=== PATIENT | male | born 1995 | race Caucasian/White ===

== ENCOUNTER 2019-10-27 21:09 | Emergency (ER) | payer SELFPAY ==
[2019-10-27 21:10] VITALS: BP 164/100; PULSE 104; RESP 16; TEMP 36.6; O2SAT 99; BMI 30.1
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
--- NOTE | 2019-10-27 21:27 | RAD_ITS ---
STUDY: X-RAY - LEFT KNEE REASON FOR EXAM: Male, 24 years old. COMPLAINS OF LEFT KNEE CRAMPING, CALF PAIN. KNEE REPLACEMENT 5 YRS AGO TECHNIQUE: 4 view(s) of the knee. COMPARISON: None. FINDINGS: Prosthesis is present in anatomic alignment and position. No evidence for acute fracture or dislocation. No radiographic evidence for loosening or infection of the prosthesis.. RAD/Knee 4 or More Views IMPRESSION: Stable appearance to left knee prosthesis. No acute abnormality Electronically Signed: Julio Tian MD at 21:42 EDT , Service support ,
--- NOTE | 2019-10-27 21:28 | US_ITS ---
STUDY: VENOUS DOPPLER ULTRASOUND - LEFT LOWER EXTREMITY REASON FOR EXAM: Male, 24 years old. LT KNEE CRAMPING AND CALF PAIN TECHNIQUE: Ultrasound evaluation of the deep vein system to include nolan-scale imaging and compression was performed. Nolan-scale imaging and Doppler sonographic evaluation, including duplex spectral analysis and qualitative color flow sonography, was performed. COMPARISON: None. FINDINGS: Common Femoral Vein: Normal compression, spontaneity and augmentation. Normal color Doppler. Common Femoral Vein/Greater Saphenous Junction: Normal compression, spontaneity and augmentation. Normal color Doppler. Deep Femoral Vein: Normal compression, spontaneity and augmentation. Normal color Doppler. Femoral Proximal: Normal compression, spontaneity and augmentation. Normal color Doppler. Femoral Middle: Normal compression, spontaneity and augmentation. Normal color Doppler. Femoral Distal: Normal compression, spontaneity and augmentation. Normal color Doppler. Popliteal Vein: Normal compression, spontaneity and augmentation. Normal color Doppler. Posterior Tibial Vein: Normal compression, spontaneity and augmentation. Normal color Doppler. Peroneal Vein: Normal compression, spontaneity and augmentation. Normal color Doppler. US/Venous Duplex Imag/Limited/Uni IMPRESSION: Normal venous Doppler ultrasound of the lower extremity. Electronically Signed: Julio Tain MD at 22:04 EDT , Service support ,
[2019-10-27] MEDS: Naproxen 500 MG Tablet PO (21:29)
[2019-10-27 22:15] VITALS: BP 149/83; PULSE 85; RESP 18; O2SAT 100
== END 2019-10-27 22:15 | disposition home or self-care (01) ==
PROVIDERS: Emergency Provider Emergency Medicine
DX: S83.92XA Sprain of unspecified site of left knee, initial encounter (principal); X58.XXXA Exposure to other specified factors, initial encounter; Y93.9 Activity, unspecified; Y92.9 Unspecified place or not applicable; Z96.652 Presence of left artificial knee joint
CPT/HCPCS: 73564; 93971; 99283